=== PATIENT | male | born 1975 | race Caucasian/White ===

== ENCOUNTER 2016-10-16 15:59 | Emergency (ER) | payer OTHER ==
[2016-10-16] MEDS ORDERED: IBUPROFEN 600 MG TABLET ONE (17:19)
[2016-10-16] MEDS ORDERED: HYDROCODONE/ACETAMINOPHEN 5/325MG TABLET ONE (17:20)
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
[2016-10-16] MEDS ORDERED: LORAZEPAM 2 MG/ML 1ML SDV ONE (18:54)
[2016-10-16 19:20] LABS: INR 0.93; PARTIAL THROMBOPLASTIN TIME 22.7 SECONDS (24.5-33.0); PROTHROMBIN TIME 9.8 SECONDS (9.3-11.4)
[2016-10-16 19:21] LABS: ALB/GLOB RATIO 1.1 (>1.0); ALBUMIN 3.7 gm/dL (3.5-5.7); CALCIUM 8.7 mg/dL (8.6-10.3)
[2016-10-16 19:26] LABS: ABSOLUTE NEUTROPHIL COUNT 8.5 K/mm3 (1.8-7.7); BASO # 0.1 K/mm3 (0.0-0.2); BASO % 0.6 % (0.2-1.0); EOS # 0.1 (0.0-0.5); EOS % 0.7 % (0.9-2.9); HEMATOCRIT 35.8 % (32.0-52.0); HEMOGLOBIN 10.2 gm/l (14.0-18.0); IMM NEUT # 0.1 K/mm3 (0-0.2); IMM NEUT% 0.5 % (0-1); LYMPH # 1.3 (1.0-4.8); MEAN CELL VOLUME 71.7 fl (80.0-94.0); MEAN CORPUSCULAR HEMOGLOBIN 20.4 pg (27.0-31.0); MEAN CORPUSCULAR HGB CONC 28.5 g/dl (33.0-37.0); MEAN PLATELET VOLUME 9.3 fl (7.4-10.4); MONO # 0.7 (0.0-0.8); MONO % 6.9 % (4-12); NEUT % 79.3 % (43-75); PLATELET COUNT 317 K/mm3 (130-400); RED CELL DISTRIBUTION WIDTH 21.7 % (11.5-14.5)
[2016-10-16 20:53] LABS: ANISOCYTOSIS 1+; OVALOCYTES 1+; PLATELET ESTIMATE NORMAL (NORMAL)
== END 2016-10-16 19:20 | disposition short-term general hospital (02) ==
LOC: ED 15:59
DX: S22.069A Unspecified fracture of T7-T8 vertebra, initial encounter for closed fracture (principal); S22.079A Unspecified fracture of T9-T10 vertebra, initial encounter for closed fracture; V43.62XA Car passenger injured in collision with other type car in traffic accident, initial encounter; Y92.410 Unspecified street and highway as the place of occurrence of the external cause
CPT/HCPCS: 85025; 80053; 80307; 85730; 85610; 71250; 99285 ×2; 96374; J2060; A9270 ×2